=== PATIENT | female | born 1980 | race American Indian/Alaskan Native ===

== ENCOUNTER 2017-06-13 18:57 | Emergency (ER) | payer OTHER, MEDICAID ==
[2017-06-13 19:29] VITALS: BP 117/64
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
== END 2017-06-13 21:29 | disposition home or self-care (01) ==
LOC: ED 18:57
DX: M54.2 Cervicalgia (principal)
CPT/HCPCS: 99282

== ENCOUNTER 2018-11-04 08:07 | Day surgery (SDC) | payer MEDICAID ==
[~2018-11-04 08:07] MED LIST: ANCEF/STERILE WATER 2 GM/20 ML 2 GM/20 ML SYRINGE IV NR
--- NOTE | 2018-11-04 08:52 | Anesthesia Day of Surgery ---
Anesthesia Day of Surgery - Day of Surgery Patient Examined: Yes Patient H&P Reviewed: Yes Patient is NPO: Yes
--- NOTE | 2018-11-04 08:52 | Anesthesia Consultation ---
Anesthesia Consult and Med Hx Date of service: 11/04/18 - Airway Anesthetic Teeth Evaluation: Good ROM Head & Neck: Adequate Mental/Hyoid Distance: Adequate Mallampati Class: Class I Intubation Access Assessment: Good - Pulmonary Exam CTA: Yes - Cardiac Exam Cardiac Exam: RRR - Pre-Operative Health Status ASA Pre-Surgery Classification: ASA2 Proposed Anesthetic Plan: General - Pulmonary Hx Smoking: No Hx Asthma: Yes (last inhaler use 2 wks ago) Hx Respiratory Symptoms: No Home Oxygen Therapy: No Hx Sleep Apnea: No (VALENTÍN PRE SCREEN NEGATIVE) - Cardiovascular System Hx Hypertension: No Hx Heart Attack/AMI: No Hx Cardia Arrhythmia: No Hx Heart Murmur: Yes (was noted by previous physician; no symptoms) - Central Nervous System Hx Seizures: No CVA: No Hx Psychiatric Problems: No - Gastrointestinal Hx Gastroesophageal Reflux Disease: No - Endocrine Hx Renal Disease: No Hx Liver Disease: No Hx Insulin Dependent Diabetes: No Hx Non-Insulin Dependent Diabetes: No Hx Thyroid Disease: No - Hematic Hx Sickle Cell Disease: No - Other Systems Hx Alcohol Use: Yes (WINE QD) Hx Obesity: No - Additional Comments Anesthesia Medical History Comments: No hx anesthetic complications.
[2018-11-04] MEDS ORDERED: PEPCID IV NR (08:53)
[2018-11-04] MEDS ORDERED: DILAUDID IV PRN (08:53)
[2018-11-04] MEDS ORDERED: NEURONTIN PO NR (09:00)
[2018-11-04] MEDS ORDERED: LACTATED RINGERS 1,000 ML IV SCH (09:00)
[2018-11-04] MEDS ORDERED: ceFAZolin 2 GM in NACL 0.9% 100 ML IV ONE (09:00)
[2018-11-04] MEDS ORDERED: VERSED IV NR (09:00)
[2018-11-04] MEDS ORDERED: TRANSDERM-SCOP TD NR (09:00)
[2018-11-04 09:47] LABS: Basophils # (Auto) 0.1 K/mm3 (0.0-0.1); Basophils % (Auto) 1.3 % (0.0-1.8); Eosinophils # (Auto) 0.2 K/mm3 (0.0-0.4); Eosinophils % (Auto) 4.6 % (0.0-4.3); Hematocrit 33.3 % (30.3-42.9); Hemoglobin 11.1 gm/dl (10.1-14.3); Lymphocytes # (Auto) 1.5 K/mm3 (1.2-5.4); Lymphocytes % (Auto) 32.8 % (13.4-35.0); Mean Corpuscular HGB Conc 33 % (30-34); Mean Corpuscular Volume 93 fl (79-97); Monocytes # (Auto) 0.2 K/mm3 (0.0-0.8); Monocytes % (Auto) 5.4 % (0.0-7.3); Platelet Count 334 K/mm3 (140-440); Red Blood Count 3.59 M/mm3 (3.65-5.03); Red Cell Distribution Width 13.4 % (13.2-15.2)
[2018-11-04] MEDS ORDERED: DIPRIVAN 10 MG/ML IV ONE (09:56)
[2018-11-04] MEDS ORDERED: SUBLIMAZE ONE (09:56)
[2018-11-04] MEDS ORDERED: MARCAINE 0.5% INFILTRATI ONE ×2 (10:52→12:00)
[2018-11-04] MEDS ORDERED: XYLOCAINE 1% 20 mL ONE (10:52)
[2018-11-04] MEDS ORDERED: ZEMURON IV ONE ×2 (11:47→13:02)
[2018-11-04] MEDS ORDERED: NACL 0.9% IR ONE (12:00)
[2018-11-04] MEDS ORDERED: XYLOCAINE 1% 20 mL INFILTRATI ONE (12:00)
[2018-11-04] MEDS ORDERED: WATER FOR IRRIG STERILE IR ONE (12:00)
--- NOTE | 2018-11-04 12:32 | Short Stay Summary ---
Short Stay Documentation Date of service: 11/04/18 - History Principal diagnosis: symptomatic cholelithiasis H&P: obtained from office - Allergies and Medications Current Medications: Allergies No Known Allergies Allergy (Verified 04/24/13 09:53) Home Medications Medication Instructions Recorded Confirmed Last Taken Type Albuterol Sulfate [Proair Hfa] 2 puff INHALATION PRN PRN 10/03/13 11/03/18 Unk nown History Active Medications Celecoxib (Celebrex) 200 mg PO PREOP NR Stop: 11/04/18 16:00 Last Admin: 11/04/18 09:26 Dose: 200 mg Documented by: Famotidine (Pepcid) 20 mg IV ONCE NR Stop: 11/04/18 16:00 Last Admin: 11/04/18 09:28 Dose: 20 mg Documented by: Gabapentin (Neurontin) 300 mg PO PREOP NR Stop: 11/04/18 16:00 Last Admin: 11/04/18 09:26 Dose: 300 mg Documented by: Hydromorphone HCl (Dilaudid) 0.5 mg IV Q10MIN PRN PRN Reason: Pain , Severe (7-10) Stop: 11/04/18 20:00 Cefazolin Sodium (Ancef/Sterile Water 2 Gm/20 Ml) 2 gm in 20 mls @ 80 mls/hr IV PREOP NR Stop: 11/04/18 23:59 Lactated Ringer's (Lactated Ringers) 1,000 mls @ 100 mls/hr IV DIRECT FLORI Last Admin: 11/04/18 09:36 Dose: 100 mls/hr Documented by: Midazolam HCl (Versed) 2 mg IV PREOP NR Stop: 11/04/18 23:59 Last Admin: 11/04/18 10:06 Dose: 2 mg Documented by: Scopolamine (Transderm-Scop) 1 each TD PREOP NR Stop: 11/04/18 20:00 Last Admin: 11/04/18 09:34 Dose: 1 each Documented by: - Brief post op/procedure progress note Date of procedure: 11/04/18 Pre-op diagnosis: calculus of gallbladder without cholecystitis or obstruction Post-op diagnosis: same Procedure: robotic assisted cholecystectomy Anesthesia: GETA, local Findings: distended gallbladder with stones Surgeon: EVELIN MANE Estimated blood loss: minimal Pathology: list (gallbladder and stones) Specimen disposition: to lab Condition: stable - Hospital course Hospital course: Pt observed in PACU and discharged to home in stable condition once criteria met - Disposition Condition at discharge: Good Disposition: DC-01 TO HOME OR SELFCARE Short Stay Discharge Plan Activity: other (see printed discharge instructions) Diet: regular Wound: open to air, per your surgeon's advice Additional Instructions: SEE PRINTED DISCHARGE INSTRUCTIONS Follow up with: PRIMARY CARE, [Primary Care Provider] - 7 Days EVELIN MANE DO [Staff Physician] - 14 Days Prescriptions: HYDROcodone/APAP 5-325 [Corder 5/325] 1 each PO Q4HR PRN #20 tablet PRN Reason: Pain
[2018-11-04] MEDS ORDERED: ZOFRAN ONE (13:02)
[2018-11-04] MEDS ORDERED: BLOXIVERZ ONE (13:02)
[2018-11-04] MEDS ORDERED: DECADRON ONE (13:02)
[2018-11-04] MEDS ORDERED: ROBINUL ONE (13:02)
[2018-11-04] MEDS ORDERED: LACTATED RINGERS 1,000 ML ONE (13:02)
[2018-11-04 13:29] VITALS: BP 124/63
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
--- NOTE | 2018-11-04 16:56 | Post Anesthesia Evaluation ---
- Post Anesthesia Evaluation Patient Participated: Yes Airway Patent: Yes Stable Respiratory Function: Yes Nausea/Vomiting: No Temp > 96.8F: Yes Pain Manageable: Yes Adequeate Hydration: Yes Anesthesia Complications: No
== END 2018-11-04 08:08 | disposition home or self-care (01) ==
LOC: OR 08:07
PROVIDERS: ATTEND Surgery
DX: K80.10 Calculus of gallbladder with chronic cholecystitis without obstruction (principal); J45.909 Unspecified asthma, uncomplicated; Z79.899 Other long term (current) drug therapy; Z98.51 Tubal ligation status; Z72.89 Other problems related to lifestyle; Z80.8 Family history of malignant neoplasm of other organs or systems; Z98.890 Other specified postprocedural states
CPT/HCPCS: 36415; 47562; 81025; 85025; 88304; J0690; J1100; J1170; J2250; J2405; J2704; J2710; J3010; J7120; S2900